=== PATIENT | female | born 1970 | race Caucasian/White ===

== ENCOUNTER 2017-01-26 22:28 | Emergency (ER) | payer OTHER ==
[~2017-01-26] VITALS: Ht 162.6 cm; Wt 68.0 kg
[2017-01-26 22:32] VITALS: BP_SYST 122
[2017-01-26 22:53] VITALS: BP_SYST 122
== END 2017-01-26 22:53 ==
LOC: SED 22:28
DX: Z02.89 Encounter for other administrative examinations (principal)
CPT/HCPCS: 99283